=== PATIENT | male | born 1950 ===

== ENCOUNTER 2023-03-11 09:52 | Day surgery (SDC) | payer MEDICARE, OTHER ==
[~2023-03-11] VITALS: Ht 162.6 cm; Wt 80.3 kg
[2023-03-11] MEDS ORDERED: ZOCOR 20MG20 MG PO (10:38)
[2023-03-11] MEDS ORDERED: CLARITIN 1010 MG/TAB PO (10:39)
[2023-03-11] MEDS ORDERED: FLONASE NASAL S16 GM NS (10:39)
[2023-03-11 10:52] VITALS: BP 126/85; PULSE 96; TEMP 98.1
[2023-03-11 12:55] VITALS: BP 105/71; PULSE 95; TEMP 97.3
[2023-03-11 13:00] VITALS: BP 103/76; PULSE 92
[2023-03-11 13:15] VITALS: BP 135/96; PULSE 96
[2023-03-11 13:25] VITALS: BP 131/92; PULSE 84
--- NOTE | 2023-03-11 13:32 | NUR ---
1255- PATIENT RETURNS TO [facility] VIA CART. PT AWAKE AND ALERT. RESPIRATIONS UNLABORED. AMBULATED TO RECLINER CHAIR WITH 2:1 SBA. PT DENIES NAUSEA OR ABDOMINAL PAIN. HOOKED UP TO MONITOR AND VS OBTAINED. CALL LIGHT AT SIDE AND PRESENT. 1300- DR. VALDES IN ROOM SPEAKING WITH PATIENT. 1305- PATIENT TOLERATING CRANBERRY JUICE AND WARM MUFFIN WITHOUT NAUSEA OR DIFFICULTY SWALLOWING. 1315- D/C INSTRUCTIONS REVIEWED WITH PATIENT. PT VERBALIZED UNDERSTANDING AND A COPY OF INSTRUCTIONS PROVIDED IN D/C FOLDER. 1329- PATIENT DRESSES SELF. 1332- PATIENT DISCHARGED FROM UNIT VIA W/C TO A PERSONAL VEHICLE. PT LEFT HOSPITAL IN STABLE CONDITION.
== END 2023-03-11 13:32 | disposition home or self-care (01) ==
LOC: SDCO 09:52
DX: Z12.11 Encounter for screening for malignant neoplasm of colon (principal); D12.2 Benign neoplasm of ascending colon; D12.5 Benign neoplasm of sigmoid colon; Q85.89 Other phakomatoses, not elsewhere classified; K57.30 Diverticulosis of large intestine without perforation or abscess without bleeding; K64.0 First degree hemorrhoids; Z87.891 Personal history of nicotine dependence
CPT/HCPCS: J2704; J7120